=== PATIENT | male | born 1940 | race Caucasian/White ===

== ENCOUNTER 2025-02-07 22:18 | Emergency (ER) | payer MEDICARE, OTHER ==
[~2025-02-07] VITALS: Ht 175.3 cm; Wt 99.4 kg
[2025-02-07 22:21] VITALS: BP 132/80; TEMP 98; O2SAT 98
== END 2025-02-08 00:37 | disposition home or self-care (01) ==
LOC: M ED 22:18
DX: T16.1XXA Foreign body in right ear, initial encounter (principal); K21.9 Gastro-esophageal reflux disease without esophagitis; Y92.9 Unspecified place or not applicable